=== PATIENT | female | born 1965 | race Caucasian/White ===

== ENCOUNTER 2022-01-21 10:08 | Emergency (ER) | payer OTHER, SELFPAY ==
[2022-01-21 10:35] VITALS: BP 148/89; PULSE 82; RESP 18; TEMP 36.8; O2SAT 99; BMI 28.1
--- NOTE | 2022-01-21 13:32 | ED_ITS ---
HPI - Wound/Laceration General Chief Complaint: Laceration/Wound Stated Complaint: Right leg injury, bleeding Time Seen by Provider: 01/21/22 12:34 Source: patient Mode of arrival: ambulatory Limitations: no limitations History of Present Illness HPI narrative: Patient presents with laceration to her right davis. She was moving boxes when a computer tab our slipped and fell from waist height to the ground, striking her davis on the way down. Her sock and pant leg were covering the leg but she still suffered a tear of the skin. She denies severe pain in the leg. She is able to bear weight. Does not suspect fracture. Did not hit her head, no other areas of injury. Last tetanus shot was 9 years ago. This was not a dirty area nor is there risk of soil contamination. No prior surgery or other significant injury to the leg. No history of vascular disease or neuropathy. She states her past medical history is benign, does take sertraline for anxiety and has a history of asthma. She is also on hormone replacement therapy. No recent surgery, no pertinent travel. ROS is negative for other generalized, skin, musculoskeletal or neurological changes. Related Data Home Medications Medication Instructions Recorded Confirmed albuterol sulfate 90 mcg/actuation inhalation 01/21/22 aerosol inhaler estradiol 0.05 mg-norethindrone patch 01/21/22 0.25 mg/24 hr semiwkly transderm patch (CombiPatch) estradiol-norethindrone acet 0.5 tab 01/21/22 mg-0.1 mg tablet fluticasone 250 mcg-salmeterol 50 inhalation 01/21/22 mcg/dose blistr powdr for inhalation (Advair Diskus) sertraline 100 mg tablet mg 01/21/22 Allergies Allergy/AdvReac Type Severity Reaction Status Date / Time amoxicillin [From Augmentin] Allergy Verified 01/21/22 10:34 clavulanic acid Allergy Verified 01/21/22 10:34 [From Augmentin] Exam Const: Vital Signs, click to edit/add: Vital Signs - 24 hr 01/21/22 10:35 Temperature 98.2 F Pulse Rate [Right Pulse Oximeter] 82 Respiratory Rate 18 Blood Pressure [Ri ght Upper Arm] 148/89 H Pulse Oximetry 99 Oxygen Delivery Me thod Room Air Documenting provider has reviewed patient's vital signs: yes Common normals: no apparent distress General appearance: cooperative HENMT: Common normals: normocephalic Head and scalp: normocephalic Eye: Other: Normal eye contact, gaze and visual tracking. Resp: Common normals: normal respiratory effort Effort & inspection: able to speak in complete sentences Cardio: Common normals: peripheral pulses 2+ throughout Peripheral pulses: pulses 2+ throughout Extremity: Other: Right knee and ankle have normal range of motion, normal strength and sensation in the foot. Normal DP and PT pulses on the right. Normal sensory exam. Opposite left leg is unaffected. 7 cm curved laceration/skin tear with very thin flap noted. Mild continued bleeding. Full-thickness tear even down to the muscular layer against the davis. Bone is not visible. Small areas of loose fat are noted in these are removed with no other evidence of foreign body. Total depth is about a cm. Neuro: Motor exam: no tremor noted and no movement abnormalities noted Psych: Insight: insight good Judgement: judgment good Skin: Common normals: no rashes or lesions noted Narrative: Other than the laceration, no other skin abnormalities appreciated. General skin exam: no rashes or lesions noted Course Vital Signs Vital signs: Initial Vital Signs Temperature 98.2 F 01/21/22 10:35 Temperature Source Temporal Artery Scan 01/21/22 10:35 Pulse Rate 82 01/21/22 10:35 Respiratory Rate 18 01/21/22 10:35 Blood Pressure 148/89 H 01/21/22 10:35 Blood Pressure Mean 108 01/21/22 10:35 Blood Pressure Position Sitting 01/21/22 10:35 Pulse Oximetry 99 01/21/22 10:35 Oxygen Delivery Method 01/21/22 10:35 Vital Signs Temperature 98.2 F 01/21/22 10:35 Pulse Rate 82 01/21/22 10:35 Respiratory Rate 18 01/21/22 10:35 Blood Pressure 148/89 H 01/21/22 10:35 Pulse Oximetry 99 01/21/22 10:35 Oxygen Delivery Method 01/21/22 10:35 Temperature 98.2 F 01/21/22 10:35 Pulse Rate 82 01/21/22 10:35 Respiratory Rate 18 01/21/22 10:35 Blood Pressure 148/89 H 01/21/22 10:35 Pulse Oximetry 99 01/21/22 10:35 Oxygen Delivery Method 01/21/22 10:35 MDM - Wound/Laceration MDM Narrative Medical decision making narrative: Discussed with patient that this will be a bit of a difficult repair because of the fact that the flap is pulled back about 3-4 cm and is very thin. Recommended suture repair, she was agreeable to this. Procedure: Laceration repair of right davis: Area was anesthetized with 4 mL of 1% lidocaine with epinephrine with good anesthesia. Cleansed with Betadine x3. No evidence of foreign body noted. A total of 12 stitches were used to reapproximate the skin flap. At the superior pole, there is still about a 6 mm gape which was not able to be fully closed. Sutures are in place to reapproximate as best able. The remaining 3 cm on each side of the gaping area closed very nicely. Total areas 7 cm. Confirm last tetanus shot 02/22. Well tolerated. Cover with antibiotic ointment and bandage. Off of work today, light duty only for the next few days while this heals. Make a follow-up in the clinic for suture removal in 10 days. Discussed alarm symptoms of infection th at would warrant repeat assessment. Discharge Plan Discharge Clinical Impression: Laceration Patient Disposition: Home, Self-Care Condition: Improved Instructions: Laceration (DC) Additional Instructions: The laceration on her davis was closed with 12 stitches. These will need to be removed in about 10 days. Please make a follow-up in the clinic to have these removed. The type of flap style laceration that you had will take several weeks to completely heal. The flap area of skin does seem to have adequate blood supply and therefore should recover but there is a 20% chance that this will become necrotic, scab and slough off on its own after a few weeks. This does not need to be removed. The skin will likely be discolored for months or even years. You may also have some numbness in this area which may be long-term as well. Please keep the bandage that we applied in place until tomorrow morning. Then you may remove, wash very gently with soap and water and then recover with antibiotic ointment and a new bandage. You will change the dressing every day. Keep this covered until at least 2 days after the stitches are removed. It is normal to have some redness, swelling and watery/slightly bloody drainage. If you have severe redness, fevers, swelling in the entire leg, this would not be expected and you should seek medical opinion. It does not appear to need antibiotics at this time. Exercise and excess walking will cause too much tension on the wound. Rest for the remainder of the day. Apply ice for only a few minutes at a time if needed. Use Tylenol and/or ibuprofen as needed for pain. It is okay to take Tylenol p.m. tonight or melatonin to help you sleep. Activity Level: Activity as Tolerated Discharge Diet: Regular Prescriptions: No Action fluticasone propion-salmeterol [Advair Diskus] 250-50 mcg/dose blister with device INHALATION sertraline 100 mg tablet Label Comments: TAKE 1 AND 1/2 TABLETS BY MOUTH EVERY DAY CombiPatch 0.05-0.25 mg/24 hr patch semiweekly albuterol sulfate 90 mcg/actuation HFA aerosol inhaler INHALATION Label Comments: INHALE 2 PUFFS BY MOUTH EVERY 4 HOURS NEEDED FOR SHORTNESS OF BREATH AND COUGH. estradiol-norethindrone acet 0.5-0.1 mg tablet Stand Alone Forms: [facility] Info Instructions
--- NOTE | 2022-01-21 13:52 | ED.NURSE ---
dr. huston sutured R davis. covered with bacitracin and bandaid.
== END 2022-01-21 13:54 | disposition home or self-care (01) ==
LOC: ED 13:40
PROVIDERS: Emergency Provider Family Medicine; PCP Family Medicine
DX: S81.811A Laceration without foreign body, right lower leg, initial encounter (principal); W26.9XXA Contact with unspecified sharp object(s), initial encounter
CPT/HCPCS: 12002; 99283; 99284